=== PATIENT | male | born 1950 | race Caucasian/White ===

== ENCOUNTER 2018-05-19 12:40 | Inpatient (IN) | payer OTHER ==
[~2018-05-19] VITALS: Ht 172.7 cm; Wt 73.5 kg
[2018-05-19 12:49] VITALS: BP 146/78
--- NOTE | 2018-05-19 12:54 | NUR ---
Patient to bed 10. RN evaluating patient at bedside.
--- NOTE | 2018-05-19 13:09 | NUR ---
PATIENT PRESENTS TO ED WITH sent from pmd next door for abnormal ekg and dizziness x 2-3 wks denies pain, denies sob, or recent injury--- SKIN IS PINK/WARM/DRY; AAOX4 WITH EVEN AND STEADY GAIT; LUNGS CLEAR BL; HR EVEN AND REGULAR; PT DENIES ANY FEVER, CP, SOB, OR COUGH AT THIS TIME; PATIENT STATES PAIN OF 0/10 AT THIS TIME; VSS; PATIENT POSITIONED FOR COMFORT; HOB ELEVATED; BEDRAILS UP X2; BED DOWN. ER MD MADE AWARE OF PT STATUS.
--- NOTE | 2018-05-19 13:14 | NUR ---
cxr at bedside
[2018-05-19 13:32] LABS: BASOPHILS % (AUTO) 0.3 % (0.0-2.0); EOSINOPHILS # (AUTO) 0.1 K/uL (0-0.4); EOSINOPHILS % (AUTO) 1.3 % (0.0-4.0); HEMATOCRIT 43.6 % (36-52); LYMPHOCYTES # (AUTO) 1.1 K/uL (2.0-11.5); LYMPHOCYTES % (AUTO) 14.7 % (20.5-51.1); MEAN CORPUSCULAR HEMOGLOBIN 32 pg (27-31); MEAN CORPUSCULAR HGB CONC 34 g/dL (33-37); MEAN CORPUSCULAR VOLUME 92.9 fL (80-94); MONOCYTES # (AUTO) 0.3 K/uL (0.8-1.0); MONOCYTES % (AUTO) 4.4 % (1.7-9.3); NEUTROPHILS % (AUTO) 79.3 % (42.2-75.2); PLATELET COUNT (AUTO) 153 K/uL (140-450); RED BLOOD CELL COUNT(AUTO) 4.69 MIL/uL (4.20-6.10); RED CELL DISTRIBUTION WIDTH 13.1 % (11.6-13.7); WHITE BLOOD COUNT (AUTO) 7.6 K/uL (4.8-10.8)
[2018-05-19 13:51] LABS: CARBON DIOXIDE 27.1 mmol/L (21-32); POTASSIUM 4.1 mmol/L (3.5-5.1)
[2018-05-19 13:56] LABS: D-DIMER < 100 ng/ml (0-400)
--- NOTE | 2018-05-19 13:56 | NUR ---
Dr. Pelayo evaluating patient at bedside.
[2018-05-19 13:58] LABS: ALBUMIN 3.4 g/dL (3.4-5.0); PROTHROMBIN TIME 10.9 secs (10.8-13.4); TOTAL BILIRUBIN 0.5 mg/dL (0.0-1.0)
[2018-05-19 14:13] LABS: FREE T4 (FREE THYROXINE) 1.06 ng/dL (0.76-1.46); MAGNESIUM 1.9 mg/dL (1.8-2.4); THYROID STIMULATING HORMONE 0.79 uIU/mL (0.34-3.74)
--- NOTE | 2018-05-19 14:50 | NUR ---
US tech at bedside.
[2018-05-19] MEDS ORDERED: ONDANSETRON 4 MG ODT PO ONE (15:25)
[2018-05-19] MEDS ORDERED: hydrOXYzine HCL 25 MG TAB PO ONE (15:25)
[2018-05-19] MEDS ORDERED: FAMOTIDINE 20 MG TAB PO ONE (15:25)
[2018-05-19] MEDS ORDERED: MECLIZINE 25 MG TAB PO ONE (15:25)
[2018-05-19] MEDS: NACL 0.9% 1,000 ML IV SCH (16:59)
[2018-05-19] MEDS ORDERED: HYDROcodone/APAP 5/325 MG 1 TAB TAB PO PRN (17:00)
[2018-05-19] MEDS ORDERED: MORPHINE SULFATE 2 MG/ML SYR IVP PRN (17:00)
[2018-05-19] MEDS ORDERED: ACETAMINOPHEN 325 MG TAB PO PRN (17:00)
[2018-05-19] MEDS ORDERED: ONDANSETRON 4 MG/2 ML VIAL IM/IVP PRN (17:00)
[2018-05-19] MEDS ORDERED: DOCUSATE SODIUM 100 MG GELCAP PO PRN (17:00)
[2018-05-19 17:27] LABS: PHOSPHORUS 2.9 mg/dL (2.5-4.9)
[2018-05-19] MEDS ORDERED: LOVA20TA8 PO (17:32)
[2018-05-19] MEDS ORDERED: METF500T PO (17:32)
[2018-05-19 17:45] LABS: APPEARANCE,URINE CLEAR (CLEAR); BILIRUBIN,URINE NEGATIVE (NEGATIVE); BLOOD, URINE TRACE-I (NEGATIVE); COLOR,URINE YELLOW (YELLOW); LEUKOCYTE ESTERASE ,URINE NEGATIVE (NEGATIVE); NITRITE, URINE NEGATIVE (NEGATIVE); PH,URINE 6.5 (5.0-9.0); UGLUCOSE NEGATIVE (NEGATIVE)
--- NOTE | 2018-05-19 17:45 | NUR ---
GOT BEDSIDE REPORT FROM TORSTEN, ER NURSE. PATIENT ON TELE MONITOR AND STANDARD PRECAUTIONS IN PLACE. PATIENT AAOX4 AND ON ROOM AIR, NO DISTRESS NOTED. SKIN INTACT. IV ON R HAND 20 G INFUSING NS AT 60, IV ASYMPTOMATIC PATENT AND INTACT. FALL RISK PROTOCOL IN PLACE, W YELLOW GOWN, YELLOW SOCKS AND SIGNS POSTED. BED IN LOW POSITION, CALL LIGHT WITHIN REACH.
--- NOTE | 2018-05-19 17:45 | NUR ---
Patient will be admitted to care of Dr Brooks. Admited to Med Surg. Will go to room 124 B.. Belongings list completed. Report to ANTONIA Carrera.
[2018-05-19 17:51] LABS: WBC,URINE 0-5 /HPF (0-5)
--- NOTE | 2018-05-19 19:15 | NUR ---
GAVE BEDSIDE REPORT TO ANTONIA ROMEO. PATIENT ENDORSED IN STABLE CONDITION Addendum: 05/19/18 at 1917 by Debi Quijano RN DR. QUIJANO AT BEDSIDE
--- NOTE | 2018-05-19 19:16 | NUR ---
RECEIVED PT SITTING UP ON BED, AAOX4, DENIES ANY PAIN AND DIZZINESS, NO SOB NOTED, ORIENTED TO ROOM AND CALL LIGHT, VITAL SIGNS STABLE, SB-SR ON TELE, IVF OF NS INFUSING WELL AT 60ML/H, SAFETY MEASURES IN PLACE, CALL LIGHT WITHIN REACH.
[2018-05-19 19:30] VITALS: BP 128/65
[2018-05-19] MEDS ORDERED: MEDICATION REC. PHARMACY CONS. 1 EA MISC MC PRN (19:30)
[2018-05-19] MEDS ORDERED: MECLIZINE 25 MG TAB PO PRN (19:35)
[2018-05-19] MEDS ORDERED: LOSA100T1 PO (19:39)
[2018-05-19] MEDS ORDERED: ASPI-1677 PO (19:39)
[2018-05-19] MEDS ORDERED: INSULIN LISPRO SLIDING SCALE 100 UNITS/ML VIAL SUBQ PRN (19:40)
[2018-05-19] MEDS ORDERED: DEXTROSE 50% 50 ML SYR IVP PRN (19:40)
--- NOTE | 2018-05-19 19:50 | NUR ---
BLOOD SUGAR CHECKED WITH 79 RESULT, SANDWICH AND JUICE PROVIDED, CONSUMED 100%, ALL NEEDS ATTENDED.
[2018-05-19] MEDS: ATORVASTATIN 20 MG TAB PO SCH (20:44)
[2018-05-19] MEDS: metFORMIN 500 MG TAB PO SCH (20:48)
[2018-05-19] MEDS: BLOOD GLUCOSE MONITORING 1 DEV DEV FS SCH (20:48)
[2018-05-19] MEDS: LOSARTAN 50 MG TAB PO SCH (20:48)
[2018-05-19] MEDS ORDERED: METO25TA PO (21:10)
[2018-05-19] MEDS ORDERED: TAMS0.4C96 PO (21:10)
[2018-05-19 21:20] VITALS: BP_SYST 128; BP_SYST 136; BP_SYST 143; BP_DIAS 66; BP_DIAS 75; BP_DIAS 77
--- NOTE | 2018-05-19 21:40 | NUR ---
PT AMBULATED TO BR WITH STANDBY ASSIST, VOIDED FREELY, ALL NEEDS ATTENDED.
[2018-05-19] MEDS ORDERED: LACTULOSE 20 GM/30 ML UDC PO SCH (22:00)
[2018-05-19] MEDS ORDERED: TAMSULOSIN 0.4 MG CAP PO SCH (22:00)
[2018-05-20] VITALS: BP 106/59
--- NOTE | 2018-05-20 | NUR ---
PT SLEEPING, AROUSABLE TO NAME, VITAL SIGNS STABLE, NO DISTRESS NOTED, IVF INFUSING WELL, CONTINUE TO MONITOR CLOSELY.
--- NOTE | 2018-05-20 03:40 | NUR ---
PT SLEEPING, EASILY AROUSABLE, VITAL SIGNS STABLE, AMBULATED TO BR WITH STANDBY ASSIST, DENIES ANY DIZZINESS, MONITORED CLOSELY.
--- NOTE | 2018-05-20 06:10 | NUR ---
AM LABS DRAWN, BLOOD SUGAR CHECKED WITH 92 RESULT, NO DISTRESS NOTED, IVF INFUSING WELL, MONITORED CLOSELY.
[2018-05-20] MEDS: BLOOD GLUCOSE MONITORING 1 DEV DEV FS SCH ×4 (06:32→20:35)
[2018-05-20 06:45] LABS: BASOPHILS % (AUTO) 0.4 % (0.0-2.0); EOSINOPHILS # (AUTO) 0.3 K/uL (0-0.4); EOSINOPHILS % (AUTO) 3.7 % (0.0-4.0); HEMATOCRIT 42.5 % (36-52); HEMOGLOBIN 14.5 g/dL (12.0-18.0); LYMPHOCYTES # (AUTO) 1.7 K/uL (2.0-11.5); LYMPHOCYTES % (AUTO) 25.3 % (20.5-51.1); MEAN CORPUSCULAR HEMOGLOBIN 32 pg (27-31); MEAN CORPUSCULAR HGB CONC 34 g/dL (33-37); MEAN CORPUSCULAR VOLUME 93.4 fL (80-94); MONOCYTES # (AUTO) 0.5 K/uL (0.8-1.0); NEUTROPHILS # (AUTO) 4.2 K/uL (1.8-7.7); NEUTROPHILS % (AUTO) 62.6 % (42.2-75.2); PLATELET COUNT (AUTO) 156 K/uL (140-450); RED BLOOD CELL COUNT(AUTO) 4.55 MIL/uL (4.20-6.10); RED CELL DISTRIBUTION WIDTH 13.2 % (11.6-13.7); WHITE BLOOD COUNT (AUTO) 6.7 K/uL (4.8-10.8)
[2018-05-20 07:06] LABS: ANION GAP 13.9 (8-16); CARBON DIOXIDE 25.9 mmol/L (21-32); CREATININE 0.9 mg/dL (0.7-1.3); POTASSIUM 3.8 mmol/L (3.5-5.1)
--- NOTE | 2018-05-20 07:18 | NUR ---
PT AWAKE, NO SIGNS OF DISTRESS, REPORT GIVEN TO RN SITAL FOR CONTINUITY OF CARE.
--- NOTE | 2018-05-20 07:19 | NUR ---
RECEIVED REPORT FROM PM NURSE AT BEDSIDE. PT SITTING ON HIS BED, AOX4. PT HAS POLIO, ON FALL RISK PRECAUTION. DENIES AY PAIN. IV ACCESS ON RT WRIST. IVF INFUSING WELL. NO SIGN OF DISTRESS NOTED. WILL CONTINUE TO MONITOR PT.
[2018-05-20 07:37] LABS: CHOL/HDL RATIO 3.5 (1-4.5)
[2018-05-20 08:00] VITALS: BP_SYST 120; BP_DIAS 64; BP_DIAS 67
--- NOTE | 2018-05-20 08:40 | NUR ---
PATIENT HAS BEEN SCREENED AND CATEGORIZED MODERATE NUTRITION RISK. PATIENT WILL BE SEEN WITHIN 3-5 DAYS OF ADMISSION. 05/21/18[address]
[2018-05-20] MEDS: ECOTRIN 81 MG TABEC PO SCH (08:41)
[2018-05-20] MEDS: metFORMIN 500 MG TAB PO SCH ×2 (08:41→20:29)
[2018-05-20] MEDS ORDERED: METOPROLOL 25 MG TAB PO SCH (09:00)
--- NOTE | 2018-05-20 09:30 | NUR ---
ADMINISTERED MEDS TO PT ORDERED. PT TOLERATED HIS MEDS WELL.ASSISTED PT TO GO RESTROOM. NO SIGN OF DISTRESS NOTED. ALL SAFETY MEASURE IN PLACE. WILL CONTINUE TO MONITOR PT.
[2018-05-20] MEDS: NACL 0.9% 1,000 ML IV SCH (09:39)
--- NOTE | 2018-05-20 11:14 | NUR ---
PT WITH WOOL AND PELT GRADER AT THIS TIME. NO SIGN OF DISTRESS NOTED. PT HAS PT SESSION THIS AM. WILL CONTINUE TO MONITOR PT.
--- NOTE | 2018-05-20 11:14 | NUR ---
CHECKED ON PT. SLEEPING ON HIS BED. CAREGIVER AT HIS BEDSIDE. ALL SAFETY MEASURE IN PLACE. TALKED TO PTS SON AND UPDATED ON THE PT EARLIER. NO SIGN OF DISTRESS AT THIS TIME. WILL CONTINUE TO MONITOR PT. Addendum: 05/20/18 at 1120 by Michelle Frias RN WRONG NOTE,WRONG APTIENT
[2018-05-20 12:00] VITALS: BP 120/60
--- NOTE | 2018-05-20 12:37 | NUR ---
PT TRANSFERRED FROM 124B. PT IS STABLE. NO SIGN OF DISTRESS NOTES. STATES FEEL DIZZINESS WHEN HE MOVES HIS NECK SIDE WAYS. PT ON HIS BED, RESTING COMFORTABLY. BS 96. VS STABLE. CALL LIGHT WITHIN PT REACH. INFORMED TO USE CALL LIGHT FRO ANY HELP. WILL CONTINUE TO MONITOR PT.
--- NOTE | 2018-05-20 14:05 | NUR ---
CHECKED ON THE PT, ASSISTED PT FRO RESTROOM. NO SIGN OF DISTRESS. FAMILY AT HIS BEDSIDE. UPDATED ON PTS STATUS. WILL CONTINUE TO MONITOR PT.
--- NOTE | 2018-05-20 16:30 | NUR ---
CHECKED ON PT. RESTING ON HIS CHAIR , FAMILY AT THE BEDSIDE. NO SIGN OF DISTRESS NOTED. BS WITHIN NORMAL RANGE. CALL LIGHT WITHIN PT REACH. WILL CONTINUE TO MONITOR PT.
--- NOTE | 2018-05-20 19:25 | NUR ---
ENDORSED PT TO PM NURSE AT BEDSIDE. PT IN STABLE CONDITION.
--- NOTE | 2018-05-20 19:26 | NUR ---
RECEIVED PT ON BED, AAOX4, VITAL SIGNS STABLE, DENIES ANY PAIN, STATED HAD ONE EPISODE OF DIZZINESS DURING THE DAY, DENIES DIZZINESS AT THIS TIME, AWAITING CARDIAC CONSULT WITH DR Corey FISCHER, SAFETY MEASURES IN PLACE, CALL LIGHT WITHIN REACH.
[2018-05-20 20:00] VITALS: BP 135/77
[2018-05-20] MEDS: ATORVASTATIN 20 MG TAB PO SCH (20:29)
[2018-05-20] MEDS: LOSARTAN 50 MG TAB PO SCH (20:30)
--- NOTE | 2018-05-20 20:35 | NUR ---
BLOOD SUGAR CHECKED WITH 122 RESULT, DUE MEDS ADMINISTERED, AMBULATED TO BED WITH STANDBY ASSIST, ALL NEEDS ATTENDED.
[2018-05-20] MEDS ORDERED: TAMSULOSIN 0.4 MG CAP PO SCH (21:00)
--- NOTE | 2018-05-20 21:20 | NUR ---
DR Corey FISCHER HERE AND SAW THE PT, WITH NEW ORDER, ANTIVERT PO GIVEN ORDERED, ALL NEEDS ATTENDED.
[2018-05-20] MEDS ORDERED: MECLIZINE 25 MG TAB PO SCH (21:30)
[2018-05-21] VITALS: BP 124/67
--- NOTE | 2018-05-21 | NUR ---
PT SLEEPING, EASILY AROUSABLE, VITAL SIGNS STABLE, DENIES ANY PAIN AND DIZZINESS SINCE START OF THE SHIFT, IVF INFUSING WELL, CONTINUE TO MONITOR CLOSELY.
[2018-05-21] MEDS: NACL 0.9% 1,000 ML IV SCH (02:19)
[2018-05-21 04:00] VITALS: BP 125/76
--- NOTE | 2018-05-21 04:00 | NUR ---
PT SLEEPING, EASILY AROUSABLE, VITAL SIGNS STABLE, DENIES ANY PAIN OR DIZZINESS, IVF INFUSING WELL, MONITORED CLOSELY.
--- NOTE | 2018-05-21 05:20 | NUR ---
AM LAB DRAWN, BLOOD SUGAR CHECKED WITH 93 RESULT, NO EPISODE OF DIZZINESS THE WHOLE SHIFT, IVF INFUSING WELL, MONITORED CLOSELY.
[2018-05-21 06:12] LABS: BASOPHILS % (AUTO) 0.7 % (0.0-2.0); EOSINOPHILS # (AUTO) 0.3 K/uL (0-0.4); HEMATOCRIT 42.5 % (36-52); HEMOGLOBIN 14.6 g/dL (12.0-18.0); LYMPHOCYTES # (AUTO) 1.6 K/uL (2.0-11.5); LYMPHOCYTES % (AUTO) 25.8 % (20.5-51.1); MEAN CORPUSCULAR HEMOGLOBIN 32 pg (27-31); MEAN CORPUSCULAR HGB CONC 34 g/dL (33-37); MEAN CORPUSCULAR VOLUME 93.8 fL (80-94); MONOCYTES # (AUTO) 0.6 K/uL (0.8-1.0); MONOCYTES % (AUTO) 9.2 % (1.7-9.3); NEUTROPHILS # (AUTO) 3.8 K/uL (1.8-7.7); NEUTROPHILS % (AUTO) 59.3 % (42.2-75.2); PLATELET COUNT (AUTO) 148 K/uL (140-450); RED BLOOD CELL COUNT(AUTO) 4.53 MIL/uL (4.20-6.10); RED CELL DISTRIBUTION WIDTH 13.4 % (11.6-13.7); WHITE BLOOD COUNT (AUTO) 6.3 K/uL (4.8-10.8)
[2018-05-21 06:28] LABS: ANION GAP 12.1 (8-16); CARBON DIOXIDE 27.4 mmol/L (21-32); CREATININE 0.9 mg/dL (0.7-1.3); POTASSIUM 3.5 mmol/L (3.5-5.1)
[2018-05-21] MEDS: BLOOD GLUCOSE MONITORING 1 DEV DEV FS SCH (06:53)
--- NOTE | 2018-05-21 07:09 | NUR ---
PT AWAKE, NO SIGNS OF DISTRESS, REPORT GIVEN TO RN SITAL FOR CONTINUITY OF CARE.
--- NOTE | 2018-05-21 07:10 | NUR ---
RECEIVED REPORT FORM PM NURSE AT BEDSIDE. PT AWAKE, NO SIGN OF DISTRESS. PER PM NURSE,PT SEEN BY DR FISCHER LAST NIGHT. NO CHANGE IN CONDITION IN THE PT. IVF INFUSING WELL. ALL SAFETY MEASURE IN PLACE. WILL CONTINUE TO MONITOR PT.
[2018-05-21 07:49] VITALS: BP 129/87
[2018-05-21] MEDS ORDERED: METF500T PO (08:43)
[2018-05-21] MEDS ORDERED: MECL-272 PO (08:44)
[2018-05-21] MEDS: ECOTRIN 81 MG TABEC PO SCH (08:46)
--- NOTE | 2018-05-21 08:54 | NUR ---
ADMINISTERED MEDS TO PT ORDERED. TOLERATED WELL. NO SIGN OF DISTRESS NOTED. ALL SAFETY MEASURE IN PLACE. WILL CONTINUE TO MONITOR PT.
[2018-05-21] MEDS ORDERED: MECLIZINE 25 MG TAB PO SCH ×3 (09:00→19:35)
[2018-05-21] MEDS ORDERED: DOCUSATE SODIUM 100 MG GELCAP PO SCH (09:00)
--- NOTE | 2018-05-21 11:30 | NUR ---
PT DISCHARGED TO HOME, SELF . PT STABLE AT TIME OF DISCHARGE. PT WENT HOME WITH BROTHER, WALKED SELF OUT OF THE HOSPITAL. ALL DISCHARGE PACKET AND THE PRESCRIPTION , ALONG WITH DC INSTRUCTION HAS BEEN PROVIDED. PT EDUCATED OF ORTHOSTATIC HYPOTENSION. INSTRUCTION PROVIDED. VERBALIZED UNDERSTANDING.
== END 2018-05-21 11:30 | disposition home or self-care (01) | DRG 74 ==
LOC: MED 12:40 → MTU 17:04
PROVIDERS: ADMIT General Practice; ATTEND General Practice
DX: G90.8 Other disorders of autonomic nervous system (principal); E72.20 Disorder of urea cycle metabolism, unspecified; N40.0 Benign prostatic hyperplasia without lower urinary tract symptoms; E78.5 Hyperlipidemia, unspecified; I10 Essential (primary) hypertension; E11.65 Type 2 diabetes mellitus with hyperglycemia; N53.19 Other ejaculatory dysfunction; T44.6X5A Adverse effect of alpha-adrenoreceptor antagonists, initial encounter; I49.9 Cardiac arrhythmia, unspecified; I95.1 Orthostatic hypotension; H81.10 Benign paroxysmal vertigo, unspecified ear; I27.21 Secondary pulmonary arterial hypertension; Z91.041 Radiographic dye allergy status; Z79.84 Long term (current) use of oral hypoglycemic drugs; Z79.899 Other long term (current) drug therapy; Z83.3 Family history of diabetes mellitus; Z82.49 Family history of ischemic heart disease and other diseases of the circulatory system; Y92.89 Other specified places as the place of occurrence of the external cause
CPT/HCPCS: 36415; 70450; 71045; 80048; 80053; 81001; 82140; 82948; 83036; 83690; 83735; 83880; 84100; 84439; 84443; 84479; 84484; 85025; 85379; 85610; 85730; 86886; 86900; 86901; 87081; 93005; 93880; 99285; J1644; J1815; J7030; J8597; Q0092; Q0162